=== PATIENT | female | born 1985 | race Caucasian/White ===

== ENCOUNTER 2017-10-01 12:07 | Emergency (ER) | payer OTHER, MEDICAID ==
[~2017-10-01] VITALS: Ht 162.6 cm; Wt 99.8 kg
[~2017-10-01 12:07] MED LIST: ADIPEX-P37.5 MG PO; FLAGYL500 MG PO; FLEXERIL PO; HYDROCODONE-AP1 EAC6 PO; IBUPROFEN 800800 M1 PO; KEFLEX500 MG PO; LATUDA40 MG PO; LITHIUM CARBON300 M3; MEDROLDOSEPACK PO; ORTHO-NOVUM1 EAC2 PO; OVCON-351 EACH; ROBAXIN 750 MG750 M1 PO; SYNTHROID; TRAMADOL 50 MG50 MG PO; TRILEPTAL; VISTARIL 25 MG25 M1 PO; ZPAK PO
[2017-10-01] MEDS ORDERED: ACETAMINOPHEN-1 EAC1 PO (13:44)
[2017-10-01 13:53] VITALS: BP 134/75
== END 2017-10-01 13:54 | disposition home or self-care (01) ==
LOC: M.ERS 12:07
DX: M25.531 Pain in right wrist (principal); F31.9 Bipolar disorder, unspecified; F17.200 Nicotine dependence, unspecified, uncomplicated

== ENCOUNTER 2020-08-01 11:50 | Emergency (ER) | payer OTHER, MEDICAID ==
[~2020-08-01] VITALS: Ht 157.5 cm; Wt 113.4 kg
[~2020-08-01 11:50] MED LIST changes: +ACETAMINOPHEN-1 EAC1 PO
[2020-08-01] MEDS ORDERED: LABETALOL HCL100 MG PO (12:04)
[2020-08-01] MEDS ORDERED: TRAMADOL 50 MG50 MG PO ×2 (13:15→13:20)
[2020-08-01 13:28] VITALS: BP 135/72
== END 2020-08-01 13:28 | disposition home or self-care (01) ==
LOC: M.ERS 11:50
DX: M77.8 Other enthesopathies, not elsewhere classified (principal); M25.521 Pain in right elbow; F31.9 Bipolar disorder, unspecified; Z98.890 Other specified postprocedural states; Z79.899 Other long term (current) drug therapy

== ENCOUNTER 2021-05-15 18:25 | Emergency (ER) | payer OTHER, MEDICAID ==
[~2021-05-15] VITALS: Ht 157.5 cm; Wt 113.4 kg
[~2021-05-15 18:25] MED LIST changes: +LABETALOL HCL100 MG PO
[2021-05-15] MEDS ORDERED: APAP W/CODEINE1 TA2 PO (21:36)
[2021-05-15 21:45] VITALS: BP 150/100
== END 2021-05-15 21:45 | disposition home or self-care (01) ==
LOC: M.ERS 18:25
DX: S93.401A Sprain of unspecified ligament of right ankle, initial encounter (principal); F31.9 Bipolar disorder, unspecified; Z98.890 Other specified postprocedural states; Z79.899 Other long term (current) drug therapy; W00.0XXA Fall on same level due to ice and snow, initial encounter; Y93.89 Activity, other specified; Y92.89 Other specified places as the place of occurrence of the external cause; Y99.8 Other external cause status